=== PATIENT | female | born 1960 | race Caucasian/White ===

== ENCOUNTER 2024-02-26 09:36 | Outpatient (AMB) | payer OTHER, SELFPAY ==
--- NOTE | 2024-02-26 09:40 | A.OFFVIS_ITS ---
Vital Signs 02/26/24 09:44 Height 5 ft 3 in Weight 166 lb BMI 29.4 Intake Visit Reasons: FC- Right ankle fx Intake Note: Virgie is a 63 year old female who presents today with crutches and a boot for a right ankle fracture s/p fall DOI: 02/21/2024. Patient reports she got up in the middle of the night to use the bathroom when she lost her balance, twisting her ankle, and falling to the ground. She the next day her swelling and pain started to gradually worsen. Prolonged walking causes her pain to exacerbate. She expresses shooting pain that radiates up the lower leg. She saw her PCP @ [facility] for this injury and [facility]. Xrays were done @ [facility]. She has the disk and report with her today. She is on a blood tinner so she is unable to take NSAIDs. She is taking Tylenol, trying elevating, icing and states at times this gives her some relief. She was supposed to go back to work Thursday but needs a work note. Allergies codeine Allergy (Severe, Verified 02/26/24 09:57) Irritable diphenhydramine [From Benadryl] Allergy (Severe, Verified 02/26/24 09:57) Irritable povidone-iodine [From Betadine] Allergy (Severe, Verified 02/26/24 09:57) Rash erythromycin base Allergy (Intermediate, Verified 02/26/24 09:57) Vomiting Sulfa (Sulfonamide Antibiotics) Adverse Reaction (Severe, Verified 02/26/24 09:57) Vomiting CLIFFORD Inhibitors Adverse Reaction (Intermediate, Verified 02/26/24 09:57) Cough aspirin Adverse Reaction (Intermediate, Verified 02/26/24 09:57) Vomiting Erythromycin Allergy (Severe, Uncoded 02/26/24 09:57) Rash iv contrast dye Allergy (Intermediate, Uncoded 02/26/24 09:57) Rash Medication List - Last Reconciled 02/26/24 by Daren Carr PA-C carvedilol 6.25 mg PO BID ergocalciferol (vitamin D2) 1,250 mcg PO QWEEK famotidine 20 mg PO BID hydrochlorothiazide 25 mg PO DAILY mesalamine 1,200 mg PO BID warfarin 8 mg PO 5XW warfarin 10 mg PO 2XW HPI HPI FC- Right ankle fx: Details: 63-year-old female who presents to the office today with crutches for an evaluation of right ankle injury after a fall, 02/21/24. She reports she got up in the middle of the night to use the bathroom when she lost her balance twisting her ankle and sustained a fall on the ground. She had worsening pain and swelling the following day. She was seen by her PCP at [facility] for her injury as well as [facility] walk in clinic. She currently states she has swelling and shooting pain in her ankle that radiates up to her lower leg. Her pain is aggravated with prolonged ambulation. She finds mild relief with Tylenol, elevation, and icing. She has been using a boot which is causing her discomfort. She does not have a history of diabetes. 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 Review of Systems Const All systems reviewed & are unremarkable except as noted in HPI and below Physical Exam Vital Signs: BMI result Body Mass Index 29.4 Const General: cooperative, healthy appearing, comfortable, no acute distress, well developed and alert Orientation/consciousness: patient oriented x3 HEENT Head: Yes normal to inspection, Yes normocephalic and Yes atraumatic Eyes General: appearance normal, both eyes and all related structures Neck Neck: Yes normal visual inspection and Yes no lymphadenopathy Resp Effort & Inspection: normal respiratory effort and able to speak in complete sentences Cardio Rate: regular rate Peripheral pulses: Peripheral pulses 2+ throughout GI Inspection: Yes normal to inspection Palpation (GI): Soft to palpation Skin General skin exam: no rashes or lesions noted Lesions: no lesions Rashes: no rashes Neuro General: patient oriented x3 Extrem Other: Right ankle: Normal to inspection. She has some moderate swelling with tenderness over the lateral malleolus into the syndesmosis. No open wound. NVI. Psych Appearance: grossly normal Mental Status: mental status grossly normal Results Reviewed Results Reviewed: xrays of the right ankle obtained from outside facility show distal fibular fracture with widening of the clear space Assessment & Plan Assessment & Plan (1) Closed right ankle fracture: Code(s): S82.891A - Other fracture of right lower leg, initial encounter for closed fracture Category: Medical Plan I discussed the case with Dr. King. I discussed the extent of the injury to the patient and options available. Given the extent of the fracture pattern and high risk of further displacement, it is recommended that we surgically fix this to help with stability and restoring anatomy. I explained to the patient the procedure in detail along with the risks, benefits and alternatives.? Risks including but not limited to infection, wound breakdown, stiffness, ongoing pain, nonunion or malunion, and possible complications with hardware. She does understand all this and would like to proceed with open reduction internal fixation of the right ankle with Dr. King. She will be booked accordingly. Orders: Orders XR ankle RT min 3V Today M25.571 - Pain in right ankle and joints of right foot Patient Instructions: Scribed for Daren Carr PA-C, by Blanco Morris medical reimbursement specialist, on 02/26/2024 at 9:45 AM EST.? I, Daren Carr PA-C, have personally reviewed and agree with the information entered by the scribe. Coding Level of Care Code New Pt Level 4 (46823) Complex EM visit Add On G2211 Diagnoses Closed right ankle fracture S82.891A
[2024-02-26 09:44] VITALS: BMI 29.4
== END 2024-02-26 11:37 | disposition home or self-care (01) ==
PROVIDERS: Visit Provider Physician Assistant
DX: S82.891A Other fracture of right lower leg, initial encounter for closed fracture (principal)
CPT/HCPCS: 99204

== ENCOUNTER → 2024-02-26 09:36 | Outpatient (BNVA) | payer OTHER, SELFPAY | PROVIDERS: Visit Provider Physician Assistant ==

== ENCOUNTER 2024-02-29 07:56 | Outpatient (REF) | payer OTHER, SELFPAY ==
[2024-02-29 08:42] LABS: INTERNATIONAL NORM RATIO 1.2 (0.9-1.1); Prothrombin Time 14.1 SEC (11.1-13.3)
== END 2024-02-29 07:57 | disposition home or self-care (01) ==
LOC: HO.LAB 07:56
PROVIDERS: PCP Family Medicine; Visit Provider Physician Assistant
DX: Z51.81 Encounter for therapeutic drug level monitoring (principal); Z79.01 Long term (current) use of anticoagulants
CPT/HCPCS: 36415; 85610

== ENCOUNTER 2024-03-02 09:46 | Day surgery (SDC) | payer OTHER, SELFPAY ==
--- NOTE | 2024-03-01 13:48 | P.CONAN_ITS ---
Documented by User: Ghazala Avina NP 03/01/24 13:49 HPI - Anesthesia Eval Consult details Narrative: 63yo F for Right Ankle Fracture ORIF Follows [facility] for afib. OK to hold warfarin. 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 Allergies Allergy/AdvReac Type Severity Reaction Status Date / Time codeine Allergy Severe Irritable Verified 02/26/24 09:57 diphenhydramine Allergy Severe Irritable Verified 02/26/24 09:57 [From Benadryl] povidone-iodine Allergy Severe Rash Verified 02/26/24 09:57 [From Betadine] erythromycin base Allergy Intermediate Vomiting Verified 02/26/24 09:57 Sulfa (Sulfonamide AdvReac Severe Vomiting Verified 02/26/24 09:57 Antibiotics) CLIFFORD Inhibitors AdvReac Intermediate Cough Verified 02/26/24 09:57 adhesive AdvReac Intermediate severe rash Verified 03/02/24 11:27 aspirin AdvReac Intermediate Vomiting Verified 02/26/24 09:57 Erythromycin Allergy Severe Rash Uncoded 02/26/24 09:57 iv contrast dye Allergy Intermediate Rash Uncoded 02/26/24 09:57 Home Medications ?Medication ?Instructions ?Recorded ?Confirmed ?Last Taken ?Type carvedilol 6.25 mg tablet 6.25 mg PO BID 02/26/24 03/02/24 03/02/24 06:00 History ergocalciferol (vitamin D2) 1,250 1,250 mcg PO QWEEK 02/26/24 03/02/24 Unknown History mcg (50,000 unit) capsule famotidine 20 mg tablet 20 mg PO BID 02/26/24 03/02/24 03/02/24 06:00 History hydrochlorothiazide 25 mg tablet 25 mg PO DAILY 02/26/24 03/02/24 Unknown History mesalamine 400 mg capsule (with 1,200 mg PO BID 02/26/24 03/02/24 Unknown History delayed release tablets inside) warfarin 10 mg tablet 8 mg PO 5XW 02/26/24 03/02/24 02/25/24 History warfarin 10 mg tablet 10 mg PO 2XW 02/26/24 03/02/24 02/25/24 History Assessment and Plan Assessment Anesthesia Assessment: Chart Reviewed Documented by User: Evy Hernandez MD 03/02/24 11:49 PMFSH Past Medical History Medical History On anticoagulant therapy A-fib Family History Family history of problems with anesthesia: No Surgical History History of Problems with Anesthesia: No Social History Social History Alcohol intake: current Alcohol intake frequency: holidays/special occasions only Patient Tobacco Use Status: Never used Tobacco Use of substances other than those prescribed or required for medical reasons: No Advance Directives: No Advance Directives Information Provided: Yes service: No Current occupational status: employed 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 Allergies Allergy/AdvReac Type Severity Reaction Status Date / Time codeine Allergy Severe Irritable Verified 02/26/24 09:57 diphenhydramine Allergy Severe Irritable Verified 02/26/24 09:57 [From Benadryl] povidone-iodine Allergy Severe Rash Verified 02/26/24 09:57 [From Betadine] erythromycin base Allergy Intermediate Vomiting Verified 02/26/24 09:57 Sulfa (Sulfonamide AdvReac Severe Vomiting Verified 02/26/24 09:57 Antibiotics) CLIFFORD Inhibitors AdvReac Intermediate Cough Verified 02/26/24 09:57 adhesive AdvReac Intermediate severe rash Verified 03/02/24 11:27 aspirin AdvReac Intermediate Vomiting Verified 02/26/24 09:57 Erythromycin Allergy Severe Rash Uncoded 02/26/24 09:57 iv contrast dye Allergy Intermediate Rash Uncoded 02/26/24 09:57 Home Medications ?Medication ?Instructions ?Recorded ?Confirmed ?Last Taken ?Type carvedilol 6.25 mg tablet 6.25 mg PO BID 02/26/24 03/02/24 03/02/24 06:00 History ergocalciferol (vitamin D2) 1,250 1,250 mcg PO QWEEK 02/26/24 03/02/24 Unknown History mcg (50,000 unit) capsule famotidine 20 mg tablet 20 mg PO BID 02/26/24 03/02/24 03/02/24 06:00 History hydrochlorothiazide 25 mg tablet 25 mg PO DAILY 02/26/24 03/02/24 Unknown History mesalamine 400 mg capsule (with 1,200 mg PO BID 02/26/24 03/02/24 Unknown History delayed release tablets inside) warfarin 10 mg tablet 8 mg PO 5XW 02/26/24 03/02/24 02/25/24 History warfarin 10 mg tablet 10 mg PO 2XW 02/26/24 03/02/24 02/25/24 History Exam Airway Mallampati Class: II TM Dist: >3cm Heart: rrr Lungs: cta Assessment and Plan Assessment Anesthesia Assessment: Anesthesia Plan Discussed Final Anesthetic Review Family History of Problems with Anesthesia: No History of Problems with Anesthesia: No NPO: Yes ASA Class: II Final Preanesthetic Review: No Changes in Pt Med Stat, Meds/Allgs Chart Reviewed, Consent Obtained/Reviewed and Anes Risks/Benef Reviewed Patient Risk: Intermediate Procedure Risk: Intermediate Anesthetic Plan Anesthetic Plan: GA and Regional Block Disposition: Standard PACU
[2024-03-02] VITALS (8 sets, daily range): BP systolic 119–130; BP diastolic 66–78; PULSE 57–69; RESP 16–18; TEMP 36.2–36.8; O2SAT 94–96; BMI 28.9
[2024-03-02 11:21] LABS: Prothrombin Time 12.4 SEC (11.1-13.3); Prothrombin Time 12.5 SEC (11.1-13.3)
[2024-03-02] MEDS: Lactated Ringers 1,000 ML 100 ML IVCONT (11:29)
[2024-03-02] MEDS: Scopolamine 1.5 MG PATCH.TD.3 EAR-BEHIND (12:01)
--- NOTE | 2024-03-02 12:47 | MHC.SHP ---
Pre-Procedural Eval Section A - 24 Hr Update-Section A only Date of Service: 03/02/24 The patient is an INPATIENT: No Changes since office visit: No Cold of Flu in the past 2 weeks, No New Medical Problems, No Changes in Medication and No Patient answered all questions The patient has been examined within 24 hours of the surgical procedure. The History & Physical has been completed within 30 days and I have reviewed it.: Yes Section B - Complete if H&P > 30 days Chief Complaint: Pain in right ankle and joints of right foot Allergies: Allergies Allergy/AdvReac Type Severity Reaction Status Date / Time codeine Allergy Severe Irritable Verified 02/26/24 09:57 diphenhydramine Allergy Severe Irritable Verified 02/26/24 09:57 [From Benadryl] povidone-iodine Allergy Severe Rash Verified 02/26/24 09:57 [From Betadine] erythromycin base Allergy Intermediate Vomiting Verified 02/26/24 09:57 Sulfa (Sulfonamide AdvReac Severe Vomiting Verified 02/26/24 09:57 Antibiotics) CLIFFORD Inhibitors AdvReac Intermediate Cough Verified 02/26/24 09:57 adhesive AdvReac Intermediate severe rash Verified 03/02/24 11:27 aspirin AdvReac Intermediate Vomiting Verified 02/26/24 09:57 Erythromycin Allergy Severe Rash Uncoded 02/26/24 09:57 iv contrast dye Allergy Intermediate Rash Uncoded 02/26/24 09:57 Plan I have reviewed the history and physical and performed a pertinent physical examination on my patient. No changes have occurred unless specified. Time Spent With Patient Time: Total time managing care of this patient today ____ minutes.
--- NOTE | 2024-03-02 14:03 | P.BOP_ITS ---
Brief Operative Note Date of Service: 03/02/24 Pre-op diagnosis: Right lateral mal Post-op diagnosis: same Procedure: ORIF right lateral malleolus ORIF right syndesmosis Implants: [place] lateral plate [facility] sydesmosis tightrope Surgeon: Allan King MD Anesthesia: GLMA and regional Was an Stitcher Feeder used for this Procedure?: Yes Stitcher Feeder: Venus Domínguez Estimated blood loss (mL): 20 Tourniquet time (min): 30 IV fluids (mL): 750 Pathology: none sent Condition: stable Disposition: PACU
[2024-03-02] MEDS: fentaNYL citrate/PF 100 MCG/2 ML VIAL 50 MCG IVPUSH (14:25)
--- NOTE | 2024-03-15 06:53 | W.PM.OPN ---
Operative Note Operative Note Date of Service: 03/02/24 Narrative: Date of Service: 03/02/24 Pre-op diagnosis: Right lateral mal Post-op diagnosis: same Procedure: ORIF right lateral malleolus ORIF right syndesmosis Implants: [place] lateral plate [facility] sydesmosis tightrope Surgeon: Allan King MD Anesthesia: GLMA and regional Was an Talent Management Manager used for this Procedure?: Yes Talent Management Manager: Venus Domínguez Estimated blood loss (mL): 20 Tourniquet time (min): 30 IV fluids (mL): 750 Pathology: none sent Condition: stable Disposition: PACU Procedure in detail: Patient was brought to the operating room and placed supine on the operative table. All bony prominences were well padded and a time-out was called to identify proper site proper procedure proper surgeon. IV antibiotics per weight were administered. I began by exsanguinating limb is slightly tourniquet to 300 mm Hg. I then made a standard posterolateral incision over the fibula. Full-thickness flaps were taken down to the fibular shaft and distal fibula. The fracture was identified and cleaned with a combination of curette, rongeur and irrigation. A lobster claw was used to provisionally reduce the fracture and a 6 hole distal fibular locking plate was applied using standard AO technique. Biplanar fluoroscopy was used to confirm hardware position and fracture reduction. Once I was satisfied that both of these were acceptable I irrigated copiously and turned my attention to the syndesmosis. The syndesmosis was tested using external rotation test and was found to be unstable. I selected a syndesmosis suture button and drilled from lateral to medial and posterior to anterior of ~ 20deg. The medial button was placed and the suture tightened to the lateral button which was inserted into the lateral plate. I was satisfied with the alignment and the ER test was again performed and the syndesmosis was found to be stable. Therefore all instrumentation was removed and copious irrigation was performed. Absorbable suture and tunde were used for closure and the patient was placed into sterile dressings and a well-padded posterior splint. Tourniquet was let down and the patient was extubated brought to recovery room in stable condition there were no known complications.
== END 2024-03-02 15:12 | disposition home or self-care (01) ==
LOC: HO.SSS 09:46
PROVIDERS: Nurse Practitioner; Physician Assistant; PCP Family Medicine; Visit Provider Orthopaedic Surgery
PROC: (CPT 27792; principal; 2024-03-02 13:20)
DX: S82.891A Other fracture of right lower leg, initial encounter for closed fracture (principal); M25.571 Pain in right ankle and joints of right foot; W01.0XXA Fall on same level from slipping, tripping and stumbling without subsequent striking against object, initial encounter; X50.1XXA Overexertion from prolonged static or awkward postures, initial encounter; Y93.89 Activity, other specified; Y92.009 Unspecified place in unspecified non-institutional (private) residence as the place of occurrence of the external cause; Y99.8 Other external cause status; Y99.9 Unspecified external cause status; I48.91 Unspecified atrial fibrillation; Z79.01 Long term (current) use of anticoagulants
CPT/HCPCS: 27792; 27829; 36415; 85610; C1713; J0131; J0665; J0690; J1100; J2250; J2405; J2704; J2795; J3010

== ENCOUNTER → 2024-03-02 09:46 | Outpatient (BNV) | payer OTHER, SELFPAY | PROVIDERS: PCP Family Medicine; Visit Provider Orthopaedic Surgery | DX: S82.61XA Displaced fracture of lateral malleolus of right fibula, initial encounter for closed fracture (principal) | CPT/HCPCS: 27792 ==

== ENCOUNTER 2024-03-08 11:04 | Outpatient (AMB) | payer OTHER, SELFPAY ==
--- NOTE | 2024-03-08 11:16 | MHC.OFFVIS ---
Intake Visit Reasons: PO- Splint change Rt Ankle ORIF 03/02/24 NE Intake Note: Virgie is a 63 year old female who presents today for a splint change s/p Rt Ankle ORIF 03/02/24 NE. Patient reports her splint felt very loose. Allergies codeine Allergy (Severe, Verified 02/26/24 09:57) Irritable diphenhydramine [From Benadryl] Allergy (Severe, Verified 02/26/24 09:57) Irritable povidone-iodine [From Betadine] Allergy (Severe, Verified 02/26/24 09:57) Rash erythromycin base Allergy (Intermediate, Verified 02/26/24 09:57) Vomiting Sulfa (Sulfonamide Antibiotics) Adverse Reaction (Severe, Verified 02/26/24 09:57) Vomiting CLIFFORD Inhibitors Adverse Reaction (Intermediate, Verified 02/26/24 09:57) Cough adhesive Adverse Reaction (Intermediate, Verified 03/02/24 11:27) severe rash aspirin Adverse Reaction (Intermediate, Verified 02/26/24 09:57) Vomiting Erythromycin Allergy (Severe, Uncoded 02/26/24 09:57) Rash iv contrast dye Allergy (Intermediate, Uncoded 02/26/24 09:57) Rash HPI HPI PO- Splint change Rt Ankle ORIF 03/02/24 NE: Details: 63-year-old female who presents in the office today for a splint change; 6 days status post right ankle lateral malleolus and syndesmosis ORIF, which was performed on 03/02/[address] King. ? ? While in the office today, the patient reports her splint felt loose. ? 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 [place] are intact. No surrounding erythema or drainage. No signs of infection. Ecchymosis extends proximally up the lateral aspect of the incision site to the mid fibula. Able to move all digits. Sensation intact. Pedal pulse intact. ? Office Procedures Casting/Splints [id number] Leg splint application Procedure code (CPT) selection complete Assessment & Plan Assessment & Plan (1) Closed right ankle fracture: Comment: right ankle lateral malleolus and syndesmosis ORIF 03/02/24 NE Code(s): S82.891A - Other fracture of right lower leg, initial encounter for closed fracture Category: Medical Plan Ms. De La Fuente is a 63-year-old female who presents in the office today for a splint change; 6 days status post right ankle lateral malleolus and syndesmosis ORIF, which was performed on 03/02/[address] King. ? ? While in the office today, the patient reports her splint felt loose.? ? The patient was placed back into a custom molded posterior splint. She will remain non-weight bearing. Follow-up will be at her regularly scheduled follow-up appointment, or sooner if needed. ? Patient Instructions: Scribed by Elana Miranda medical and health services manager, for Venus Domínguez PA-C on at 11:21 am, EST.? Coding Level of Care Code Global (10123) Diagnoses Closed right ankle fracture S82.891A CPT Codes Splint - CPT: 42928-Pqcsc Leg splint application ([id number])
== END 2024-03-08 11:43 | disposition home or self-care (01) ==
PROVIDERS: PCP Family Medicine; Visit Provider Physician Assistant
DX: S82.891A Other fracture of right lower leg, initial encounter for closed fracture (principal); W19.XXXA Unspecified fall, initial encounter
CPT/HCPCS: 29515; 99024

== ENCOUNTER → 2024-03-08 11:04 | Outpatient (BNVA) | payer OTHER, SELFPAY | PROVIDERS: PCP Family Medicine; Visit Provider Physician Assistant | DX: S82.891D Other fracture of right lower leg, subsequent encounter for closed fracture with routine healing (principal) | CPT/HCPCS: 29515 ==

== ENCOUNTER 2024-03-15 12:11 | Outpatient (AMB) | payer OTHER, SELFPAY ==
--- NOTE | 2024-03-15 12:26 | MHC.OFFVIS ---
Intake Visit Reasons: PO-Rt Ankle ORIF 03/02/24 NE Intake Note: Virgie is a 63 year old female who presents today for a post op appointment s/p Rt Ankle ORIF 03/02/24 NE. Patient reports she is doing well, states her current pain level is 5 out of 10. States she is out of pain medication. Allergies codeine Allergy (Severe, Verified 02/26/24 09:57) Irritable diphenhydramine [From Benadryl] Allergy (Severe, Verified 02/26/24 09:57) Irritable povidone-iodine [From Betadine] Allergy (Severe, Verified 02/26/24 09:57) Rash erythromycin base Allergy (Intermediate, Verified 02/26/24 09:57) Vomiting morphine Allergy (Verified 03/15/24 12:28) Hives Sulfa (Sulfonamide Antibiotics) Adverse Reaction (Severe, Verified 02/26/24 09:57) Vomiting CLIFFORD Inhibitors Adverse Reaction (Intermediate, Verified 02/26/24 09:57) Cough adhesive Adverse Reaction (Intermediate, Verified 03/02/24 11:27) severe rash aspirin Adverse Reaction (Intermediate, Verified 02/26/24 09:57) Vomiting Erythromycin Allergy (Severe, Uncoded 02/26/24 09:57) Rash iv contrast dye Allergy (Intermediate, Uncoded 02/26/24 09:57) Rash HPI HPI PO-Rt Ankle ORIF 03/02/24 NE: Details: 63-year-old female who presents in the office today 13 days status post right ankle lateral malleolus and syndesmosis ORIF, which was performed on 03/02/[address] Allan King. I last saw the patient in the clinic on 03/08/24 when she presented for a splint change and was placed into a new custom molded posterior splint and was recommended to remain non-weight bearing. While in the office today, the patient reports she is doing well, however, she continues to have pain. She rates her pain a 5/10 on the pain scale. She mentions that she is out of pain medication. 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 Mild edema on both the medial and lateral incision sites. No erythema or drainage. No signs of infection. Able to slightly dorsiflex and plantarflex. Pedal pulse is intact. Office Procedures Casting/Splints [id number] Leg Cast Application Procedure code (CPT) selection complete Assessment & Plan Assessment & Plan (1) Closed right ankle fracture: Comment: right ankle lateral malleolus and syndesmosis ORIF 03/02/24 NE Code(s): S82.891A - Other fracture of right lower leg, initial encounter for closed fracture Category: Medical Plan is a 63-year-old female who presents in the office today 13 days status post right ankle lateral malleolus and syndesmosis ORIF, which was performed on 03/02/[address] Allan King. I last saw the patient in the clinic on 03/08/24 when she presented for a splint change and was placed into a new custom molded posterior splint and was recommended to remain non-weight bearing. While in the office today, the patient reports she is doing well, however, she continues to have pain. She rates her pain a 5/10 on the pain scale. She mentions that she is out of pain medication. Farrah were removed and steri-strips were applied. She was placed into a short leg cast, custom made. She will remain non-weight bearing. Follow-up will be in 4 weeks with X-rays cast off, or sooner if needed. Patient Instructions: Scribed by Shey Mcginnis medical services coordinator, for Venus Domínguez PA-C on 03/15/24 at 12:39 pm EST. Coding Level of Care Code Global (45757) Diagnoses Closed right ankle fracture S82.891A CPT Codes Casting - CPT: 32859-Xmiae Leg Cast Application ([id number])
== END 2024-03-15 13:56 | disposition home or self-care (01) ==
PROVIDERS: Visit Provider Physician Assistant
DX: S82.891A Other fracture of right lower leg, initial encounter for closed fracture (principal)
CPT/HCPCS: 29405; 99024

== ENCOUNTER → 2024-03-15 12:11 | Outpatient (BNVA) | payer OTHER, SELFPAY | PROVIDERS: Visit Provider Physician Assistant | DX: S82.61XD Displaced fracture of lateral malleolus of right fibula, subsequent encounter for closed fracture with routine healing (principal) | CPT/HCPCS: 29405 ==

== ENCOUNTER 2024-04-12 09:31 | Outpatient (REF) | payer OTHER, SELFPAY | END 2024-04-12 09:32 | disposition home or self-care (01) | LOC: HO.HOSX 09:31 | PROVIDERS: Visit Provider Physician Assistant | DX: M25.571 Pain in right ankle and joints of right foot (principal); S82.891D Other fracture of right lower leg, subsequent encounter for closed fracture with routine healing; Z98.890 Other specified postprocedural states | CPT/HCPCS: 73610 ==

== ENCOUNTER 2024-04-12 11:11 | Outpatient (AMB) | payer OTHER, SELFPAY ==
--- NOTE | 2024-04-12 11:22 | MHC.OFFVIS ---
Intake Visit Reasons: PO-Rt Ankle ORIF 03/02/24 NE w xray Intake Note: Virgie is a 63 year old female who presents to the office today with her own walking boot for a follow up Rt Ankle ORIF 03/02/24 NE. Patient states she has been compliant with non weight bearing. Patient states she is feeling a bit better, however she has numbness in her foot after they removed the cast. Allergies codeine Allergy (Severe, Verified 02/26/24 09:57) Irritable diphenhydramine [From Benadryl] Allergy (Severe, Verified 02/26/24 09:57) Irritable povidone-iodine [From Betadine] Allergy (Severe, Verified 02/26/24 09:57) Rash erythromycin base Allergy (Intermediate, Verified 02/26/24 09:57) Vomiting morphine Allergy (Verified 03/15/24 12:28) Hives Sulfa (Sulfonamide Antibiotics) Adverse Reaction (Severe, Verified 02/26/24 09:57) Vomiting CLIFFORD Inhibitors Adverse Reaction (Intermediate, Verified 02/26/24 09:57) Cough adhesive Adverse Reaction (Intermediate, Verified 03/02/24 11:27) severe rash aspirin Adverse Reaction (Intermediate, Verified 02/26/24 09:57) Vomiting Erythromycin Allergy (Severe, Uncoded 02/26/24 09:57) Rash iv contrast dye Allergy (Intermediate, Uncoded 02/26/24 09:57) Rash HPI HPI PO-Rt Ankle ORIF 03/02/24 NE w xray: Details: 63-year-old female who presents in the office today for a 6 weeks status post right ankle lateral malleolus and syndesmosis ORIF, which was performed on 03/02/[address] Allan King. I last saw the patient in the clinic on 03/15/24 when she was placed into a short leg cast. She was recommended to remain non-weight bearing. While in the office today, the patient presents with her own walking boot. She states she has been compliant with non-weight bearing. She reports numbness in her right foot after the removal of the cast. 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 Mild edema on both the medial and lateral incision sites. No erythema or drainage. No signs of infection. Able to slightly dorsiflex and plantarflex. Pedal pulse is intact. NVI. Assessment & Plan Assessment & Plan (1) Closed right ankle fracture: Comment: right ankle lateral malleolus and syndesmosis ORIF 03/02/24 NE Code(s): S82.891A - Other fracture of right lower leg, initial encounter for closed fracture Category: Medical Plan Ms. De La Fuente is a 63-year-old female who presents in the office today for a 6 weeks status post right ankle lateral malleolus and syndesmosis ORIF, which was performed on 03/02/[address] Allan King. I last saw the patient in the clinic on 03/15/24 when she was placed into a short leg cast. She was recommended to remain non-weight bearing. While in the office today, the patient presents with her own walking boot. She states she has been compliant with non-weight bearing. She reports numbness in her right foot after the removal of the cast. The patient can continue with a tall walking boot. She will transition to weight bearing at this time. I placed an order for physical therapy today. The goal is to wean her out of the walking boot in the next 4 weeks. Follow-up will be in 6 weeks, or sooner if needed. X-rays of the right ankle, which were obtained while in the office today and were reviewed by me, Venus Domínguez PA-C, revealed: intact orthopedic hardware with routine healing. Orders: Orders XR ankle RT min 3V Today M25.579 - Pain in unspecified ankle and joints of unspecified foot Patient Instructions: Scribed by Shey Mcginnis, medical records custodian, for Venus Domínguez PA-C on 04/12/24 at 11:44 am EST. Coding Level of Care Code Global (61560) Diagnoses Closed right ankle fracture S82.891A
== END 2024-04-12 12:05 | disposition home or self-care (01) ==
PROVIDERS: PCP Family Medicine; Visit Provider Physician Assistant
DX: S82.891A Other fracture of right lower leg, initial encounter for closed fracture (principal)
CPT/HCPCS: 99024

== ENCOUNTER 2024-05-24 09:30 | Outpatient (AMB) | payer OTHER, SELFPAY ==
--- NOTE | 2024-05-24 09:33 | MHC.OFFVIS ---
Intake Visit Reasons: PO-Rt Ankle ORIF 03/02/24 NE w xray Intake Note: Virgie is a 64 year old female who presents today for a post op appointment s/p Rt Ankle ORIF 03/02/24 NE. Patient reports still having some soreness today when walking. Patient mentions that she is still going to PT and she finds it helpful. Allergies codeine Allergy (Severe, Verified 05/24/24 09:38) Irritable diphenhydramine [From Benadryl] Allergy (Severe, Verified 05/24/24 09:38) Irritable povidone-iodine [From Betadine] Allergy (Severe, Verified 05/24/24 09:38) Rash erythromycin base Allergy (Intermediate, Verified 05/24/24 09:38) Vomiting morphine Allergy (Verified 05/24/24 09:38) Hives Sulfa (Sulfonamide Antibiotics) Adverse Reaction (Severe, Verified 05/24/24 09:38) Vomiting CLIFFORD Inhibitors Adverse Reaction (Intermediate, Verified 05/24/24 09:38) Cough adhesive Adverse Reaction (Intermediate, Verified 05/24/24 09:38) severe rash aspirin Adverse Reaction (Intermediate, Verified 05/24/24 09:38) Vomiting Erythromycin Allergy (Severe, Uncoded 02/26/24 09:57) Rash iv contrast dye Allergy (Intermediate, Uncoded 02/26/24 09:57) Rash HPI HPI PO-Rt Ankle ORIF 03/02/24 NE w xray: Details: 64-year-old female who presents in the office today for a 2 months follow-up of right ankle lateral malleolus and syndesmosis ORIF, which was performed on 03/02/[address] Allan King. I last saw the patient in the office on 04/12/24 when she was recommended to continue with a tall walking boot. She was recommended transitioning to weight bearing. She was referred to physical therapy with the goal of weaning her out of the walking boot in 4 weeks. While in the office today, the patient reports experiencing mild soreness while ambulating today. She mentions that she is attending a physical therapy session and has one more appointment left. She finds PT is helpful. 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 Mild edema medial and lateral malleolus. No erythema. No signs of infection.Able to perform full dorsi and plantarflexion. 4/5 strength with resisted dorsi/plantar flexion. EHL intact. Pedal pulse is intact. NVI. Assessment & Plan Assessment & Plan (1) Closed right ankle fracture: Comment: right ankle lateral malleolus and syndesmosis ORIF 03/02/24 NE Code(s): S82.891A - Other fracture of right lower leg, initial encounter for closed fracture Category: Medical Plan Ms. De La Fuente is a 64-year-old female who presents in the office today for a 2 months follow-up of right ankle lateral malleolus and syndesmosis ORIF, which was performed on 03/02/[address] Allna King. I last saw the patient in the office on 04/12/24 when she was recommended to continue with a tall walking boot. She was recommended transitioning to weight bearing. She was referred to physical therapy with the goal of weaning her out of the walking boot in 4 weeks. While in the office today, the patient reports experiencing mild soreness while ambulating today. She mentions that she is attending a physical therapy session and finds it helpful. She has one more physical therapy appointment. I do think the patient would benefit from more physical therapy sessions; however, she has an extremely high copay at $40. Therefore, she will be instructed with a home exercise program prior to PT discharge. I believe the residual pain that the patient is experiencing along the right medial malleolus can be attributed to osteoarthritis. I have prescribed a topical 5% lidocaine cream and she can apply it up to four times a day as needed for pain. I have extended her out of work until her follow-up on 07/01/2024. Her [facility] paperwork will reflect the extended out of work note as well. Follow-up will be on 07/01/2024, or sooner if needed. X-rays of the right ankle, which were obtained while in the office today and were reviewed by me, Venus Domínguez PA-C, revealed: Intact orthopedic hardware with routine healing and osteoarthritis of the right ankle joint. Orders: Orders XR ankle RT min 3V Today M25.579 - Pain in unspecified ankle and joints of unspecified foot Medications: New lidocaine 5% 1 appl topical QID PRN 30 grams 0RF pain Patient Instructions: Scribed by Shey Mcginnis, medical transcriptionist, for Venus Domínguez PA-C on 05/24/24 at 9:50 am EST. Coding Level of Care Code Global (19462) Diagnoses Closed right ankle fracture S82.891A
== END 2024-05-24 09:52 | disposition home or self-care (01) ==
PROVIDERS: PCP Family Medicine; Visit Provider Physician Assistant
DX: S82.891A Other fracture of right lower leg, initial encounter for closed fracture (principal)
CPT/HCPCS: 99024

== ENCOUNTER 2024-05-24 10:18 | Outpatient (REF) | payer OTHER, SELFPAY ==
--- NOTE | ~2024-05-24 | XR_ITS ---
EXAMINATION: XR ANKLE RIGHT CLINICAL INFORMATION: Pain in unspecified ankle and joints of unspecified foot M25.579. COMPARISON: XR Right ankle 04/12/2024 TECHNIQUE: AP, lateral, and oblique views of the right ankle. FINDINGS: Intact hardware plate and multiple screws across the distal fibula, and anchoring the medial malleolus. Have not changed. Ankle mortise is preserved. Talar dome is intact. Subtalar joint unremarkable. There is inferior calcaneal spur. Degenerative osteoarthritic changes of the intertarsal and tarsometatarsal level. XR/XR ankle RT min 3V IMPRESSION: 1. Intact hardware. 2. Underlying degenerative osteoarthritis. 3. Inferior calcaneal spur. 4. No acute fracture or dislocation. Electronically signed by: Brenton Arboleda MD 06/22/2024 09:16 PM JOAQUIN
== END 2024-05-24 10:19 | disposition home or self-care (01) ==
LOC: HO.HOSX 10:18
PROVIDERS: Visit Provider Physician Assistant
DX: M25.571 Pain in right ankle and joints of right foot (principal)
CPT/HCPCS: 73610

== ENCOUNTER 2024-06-17 09:00 | Outpatient (RCR) | payer OTHER, SELFPAY ==
--- NOTE | 2024-04-28 09:58 | MHC.PT.EP ---
[facility] [place] Office [place] Office [address] Omero Winslow [address] [phone] F: [phone] F: [phone] F: [phone] F: [phone] Physical Therapy Plan of Care Date of Evaluation: 04/28/24 Date of Surgery: 03/02/24 Diagnosis: ORIF R ankle Assessment: Patient is a 64 year old R handed female who presents with s/s consistent with R ankle fracture, ORIF, pain. 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 Patient past medical history includes AFib and anticoag. Current impairments include pain, balance, ROM, strength, activity tolerance and functional mobility. Functional limitations include decreased ability to stand, walk, negotiate stairs, squat, and be on feet for prolonged periods of time. Patient is motivated with good rehab potential. Skilled PT will address impairments and functional limitations in order to achieve goals. Frequency and Duration: The patient will be seen 2x/week for 5 weeks Short Term Goals: I with HEP - 2 weeks AROM DF 5 - 3 weeks PF 45 - 3 weeks EV 15 - 3 weeks Manager Sales Training Goals: Strength 4/5 grossly - 5 weeks HR 30x in 1 minutes - 5 weeks Restore normal gait pain free - 5 weeks SLB > 30 seconds on firm - 5 weeks LEFS 50/80 - 5 weeks Treatment Plan: Modalities to reduce pain, spasms and effusion. Manual therapy to restore motion and function. Therapeutic exercise to improve strength and flexibility. Neuromuscular re-education for posture and balance. Therapeutic activities to return to functional activities of daily living. Electronically signed by: Kerwin Stack, PT Please sign and return to therapist. Thank you for your referral.
--- NOTE | 2024-08-03 13:50 | MHC.PT.DC ---
[facility] [place] Office [place] Office [place] Office [address] Omero Winslow [address] [phone] F: [phone] F: [phone] F: [phone] F: [phone] Physical Therapy Discharge Report Diagnosis: ORIF R ankle Date of Surgery: 03/02/24 Date of Evaluation: 04/28/24 Date of Discharge: 06/19/24 Treatments to Date: 8 Cancellations to Date: No Shows to Date: Discharge Status: Improved Function Independent with HEP Discharge Summary: 06/17/24: I with HEP. AROM DF 8, PF 47, Ev 14. Strength 4/5 grossly. HR 18 in 1 minute. Min pain with gait pattern. LEFS 62/80. SLB 20 seconds. She is motivated to continue on own and has a high copay so we will stop at this time and d/c to HEP. 06/03/24: pt progressing with gait mechanics, slight reduction in L step length noted as well as reduced toeing off on R LE. 05/23/24: pt progressing well. improving balance and stair mechanics. continue to progress as tolerated. 05/18/24: pt progressing well with skilled PT. discussed gait mechanics at length today due to pt noticing bunion deformity. we will continue to address this. 05/11/24: AROM WNL - pain with PF. Strength 4/5 PF/DF, 4- inv/ev. swelling present at end of treatment today (2cm). continue to progress as tolerated. 05/06/24: educated thoroughly on use of boot vs shoe and how to progress. continue to progress as tolerated. 05/03/24: pt 12 minutes late and accommodated. we added ROM and strength interventions today without adverse reactions. minor swelling. no s/s of infection. start gait training next visit. Patient is a 64 year old R handed female who presents with s/s consistent with R ankle fracture, ORIF, pain. 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 Patient past medical history includes AFib and anticoag. Current impairments include pain, balance, ROM, strength, activity tolerance and functional mobility. Functional limitations include decreased ability to stand, walk, negotiate stairs, squat, and be on feet for prolonged periods of time. Patient is motivated with good rehab potential. Skilled PT will address impairments and functional limitations in order to achieve goals. Electronically signed by: Kerwin Stack, PT Please sign and return to therapist. Thank you for your referral.
== END 2024-08-03 13:50 | disposition home or self-care (01) ==
LOC: HO.PTCHIC 09:00
PROVIDERS: PCP Family Medicine; Visit Provider Physician Assistant
DX: S82.891D Other fracture of right lower leg, subsequent encounter for closed fracture with routine healing (principal)
CPT/HCPCS: 97110; 97112; 97116; 97162

== ENCOUNTER 2024-07-01 08:35 | Outpatient (REF) | payer OTHER, SELFPAY ==
--- NOTE | ~2024-07-01 | XR_ITS ---
CLINICAL HISTORY: M25.579 - Pain in unspecified ankle and joints of unspecified foot 3 view right ankle Comparison: None Findings: The patient is status post open reduction internal fixation for distal fibular fracture. Alignment is anatomic. There are mild degenerative changes at the ankle. There is a plantar calcaneal spur. No ankle effusion. No radiopaque foreign body. There is a plantar calcaneal spur. IMPRESSION: 1. No acute findings. Other findings as above. This document has been electronically signed by: Marco A Wang MD on 07/04/2024 12:15:06
== END 2024-07-01 08:36 | disposition home or self-care (01) ==
LOC: HO.HOSX 08:35
PROVIDERS: Visit Provider Physician Assistant
DX: M25.571 Pain in right ankle and joints of right foot (principal)
CPT/HCPCS: 73610

== ENCOUNTER 2024-07-01 09:34 | Outpatient (AMB) | payer OTHER, SELFPAY ==
--- NOTE | 2024-07-01 09:38 | A.OFFVIS_ITS ---
Vital Signs 07/01/24 09:46 Height 5 ft 3 in Weight 175 lb BMI 31.0 Intake Visit Reasons: PO-Rt Ankle ORIF 03/02/24 NE Intake Note: Vigrie is a 64 year old female who presents today for a post op appointment s/p Rt Ankle ORIF 03/02/24 NE. Patient reports she is doing better. She mentions having little to no pain. Allergies codeine Allergy (Severe, Verified 07/01/24 09:39) Irritable diphenhydramine [From Benadryl] Allergy (Severe, Verified 07/01/24 09:39) Irritable povidone-iodine [From Betadine] Allergy (Severe, Verified 07/01/24 09:39) Rash erythromycin base Allergy (Intermediate, Verified 07/01/24 09:39) Vomiting morphine Allergy (Verified 07/01/24 09:39) Hives Sulfa (Sulfonamide Antibiotics) Adverse Reaction (Severe, Verified 07/01/24 09:39) Vomiting CLIFFORD Inhibitors Adverse Reaction (Intermediate, Verified 07/01/24 09:39) Cough adhesive Adverse Reaction (Intermediate, Verified 07/01/24 09:39) severe rash aspirin Adverse Reaction (Intermediate, Verified 07/01/24 09:39) Vomiting Erythromycin Allergy (Severe, Uncoded 02/26/24 09:57) Rash iv contrast dye Allergy (Intermediate, Uncoded 02/26/24 09:57) Rash HPI HPI PO-Rt Ankle ORIF 03/02/24 NE: Details: Patient presents to the office today status post right ankle ORIF on 03/02/[address] King. Patient has completed physical therapy exercises she could not continue to pay for her co-pay. She is in a normal supportive walking sneaker today. She reports minimal to no pain. She is overall very happy with her recovery. She does occasionally use topical lidocaine as needed which does help her. PFSH Medical History On anticoagulant therapy A-fib Social History Alcohol intake: current Alcohol intake frequency: holidays/special occasions only Patient Tobacco Use Status: Never used Tobacco service: No Current occupational status: employed Current occupation: [employer] Review of Systems Const All systems reviewed & are unremarkable except as noted in HPI and below Physical Exam Vital Signs: BMI result Body Mass Index 31.0 Const General: cooperative, healthy appearing and no acute distress Resp Effort & Inspection: normal respiratory effort and able to speak in complete sentences Cardio Rate: regular rate Peripheral pulses: Peripheral pulses 2+ throughout Skin Lesions: no lesions Rashes: no rashes Extrem Other: Right ankle mild edema in the lateral malleolus. No tenderness to palpation lateral malleolus, mild tenderness to palpation medial malleolus. Able to perform full dorsiflexion, plantar flexion, pronation and supination without deficits. NVI. Assessment & Plan Assessment & Plan (1) Closed right ankle fracture: Comment: right ankle lateral malleolus and syndesmosis ORIF 03/02/24 NE Code(s): S82.891A - Other fracture of right lower leg, initial encounter for closed fracture Category: Medical Plan Patient presents to the office today status post right ankle ORIF on 03/02/[address] King. Patient has completed physical therapy exercises she could not continue to pay for her co-pay. She is in a normal supportive walking sneaker today. She reports minimal to no pain. She is overall very happy with her recovery. She does occasionally use topical lidocaine as needed which does help her. Patient will continue performing home exercise program provided to her by physical therapy. Should she need a refill of the lidocaine topical cream I am happy to refill the prescription. She may return to work on 07/18/2024 full-time regular duty and she will follow up with Orthopedics p.r.n. sooner if needed. X-rays obtained in the office today of the right ankle reviewed by me and reveal intact orthopedic hardware with routine healing. Osteoarthritis of the right ankle. Orders: Orders XR ankle RT min 3V Today M25.579 - Pain in unspecified ankle and joints of unspecified foot Coding Level of Care Code Est Pt Level 3 (00658) Diagnoses Closed right ankle fracture S82.891A
[2024-07-01 09:46] VITALS: BMI 31.0
== END 2024-07-01 09:56 | disposition home or self-care (01) ==
PROVIDERS: PCP Family Medicine; Visit Provider Physician Assistant
DX: S82.891A Other fracture of right lower leg, initial encounter for closed fracture (principal)
CPT/HCPCS: 99213